=== PATIENT | female | born 1955 | race Caucasian/White ===

== ENCOUNTER → 2017-08-15 | Outpatient (CLI) | payer BC, OTHER | LOC: M PLARAD 13:30 | DX: I67.1 Cerebral aneurysm, nonruptured (principal); D32.9 Benign neoplasm of meninges, unspecified | CPT/HCPCS: 70553 ==

== ENCOUNTER → 2018-09-22 | Outpatient (CLI) | payer BC, OTHER ==
--- NOTE | 2018-09-22 15:10 | REP ---
MRA BRAIN WITHOUT CONTRAST: HISTORY: Aneurysm. 3D TOF MR angiography was performed at the level of the [place] of [place]. COMPARISON: 08/15/2017 A small 2 mm aneurysm is present arising from the distal left internal carotid artery. The aneurysm is unchanged in size compared to the previous study. The aneurysm projects posterior from the left internal carotid artery. There is no other aneurysm or arteriovenous malformation. Mild atherosclerotic disease involves the cavernous right internal carotid artery. There is a mild decrease in size of the lumen of the cavernous left internal carotid artery secondary to encasement by a left parasellar meningioma. Major intracranial vessels are patent. The vertebral arteries are equal in size. IMPRESSION: 1. 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 2. 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 Electronically Signed by Anuel Lafleur MD 09/22/2018 03:19 P
--- NOTE | 2018-09-22 15:13 | REP ---
MRA CAROTIDS WITHOUT CONTRAST: HISTORY: Carotid stenosis. COMPARISON: 08/31/2010 The distal common carotid arteries and origins of the external and internal carotid arteries are normal. The vertebral arteries are equal in size and patent. There are no atherosclerotic lesions. IMPRESSION: Normal MRA carotids. Electronically Signed by Anuel Lafleur MD 09/22/2018 03:19 P
--- NOTE | 2018-09-22 15:37 | REP ---
MR BRAIN WITHOUT AND WITH CONTRAST: HISTORY: Aneurysm. CONTRAST: ProHance 12 mL. COMPARISON: 10/10/2014 and 08/15/2017. Scattered punctate areas of increased signal intensity on T2 weighted images are present in the subcortical white matter. This represents small vessel ischemic disease. There is no intraparenchymal hemorrhage, infarct or midline shift. The ventricular system is normal in appearance. There is no extracerebral collection. A left parasellar meningioma is present. The meningioma measures 2 cm in tranverse x 3.5 cm in AP x 2.2 cm in cephalocaudal dimensions and is unchanged in size compared to the previous study. There is extension into the left cavernous sinus with encasement of the cavernous left internal carotid artery. There is extension into the left Meckel's cave. There is no extension into the sella turcica. These findings are unchanged compared to the previous study. The right cavernous sinus , optic chiasm and hypothalamus are normal in appearance. A retention cyst is present in the left maxillary sinus. IMPRESSION: 1. Minimal small vessel ischemic disease. 2. Left parasellar meningioma unchanged in size compared to the previous study. Electronically Signed by Anuel Lafleur MD 09/22/2018 03:44 P
== END ==
LOC: M PLARAD 13:04
PROVIDERS: ATTEND Neurological Surgery
DX: I73.9 Peripheral vascular disease, unspecified (principal); I72.0 Aneurysm of carotid artery; D32.0 Benign neoplasm of cerebral meninges; I65.23 Occlusion and stenosis of bilateral carotid arteries